=== PATIENT | male | born 1985 | race Caucasian/White ===

== ENCOUNTER 2022-12-31 08:15 | Outpatient (CLI) | payer BC, SELFPAY ==
--- NOTE | 2022-12-31 08:43 | ECG_ITS ---
Measurements Intervals [place] Rate: 72 P: 67 KS: 202 QRS: 24 QRSD: 85 T: 34 QT: 360 QTc: 396 Interpretive Statements SINUS RHYTHM BORDERLINE AV CONDUCTION DELAY BASELINE WANDER- II, III BORDERLINE ECG NO PREVIOUS ECG AVAILABLE FOR COMPARISON Electronically Signed On 12-31-2022 9:13:44 CDT by Austyn Desai D.O.
== END 2022-12-31 08:16 | disposition home or self-care (01) ==
LOC: ANHCARD 08:16
PROVIDERS: PCP Emergency Medicine; Visit Provider Emergency Medicine
DX: R00.2 Palpitations (principal); I45.9 Conduction disorder, unspecified
CPT/HCPCS: 93005